=== PATIENT | male | born 2005 | race Caucasian/White ===

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

== ENCOUNTER 2025-01-29 20:08 | Emergency (ER) | payer OTHER, SELFPAY ==
--- OUTSIDE RECORDS SUMMARY | 2025-01-29 20:10 | XMS_ITS | Clinical Summary ---
Author Organization [facility] Address [address] [place] [address] Care Team Providers Care Cruise Consultant Name Role Phone Needs Pcp, Assignment Primary Care Provider [phone] Source Comments You are receiving this document as you are listed as the primary care provider,follow-up provider, or the patient has been referred to you for consultation.This is in compliance with the Medicare and[facility] EHR Incentive Program,which states Providers who transition their patient to another setting of careor provider of care or refers their patient to another provider of care shouldprovide summary care record for each transition of care or referral. Antidot Allergies Active Allergy Reactions Criticality Noted Date Comments Amoxicillin-Pot Clavulanate Hives High 10/21/19 16 Patient also reports throat swelling Medications ibuprofen (MOTRIN) 400 MG tablet Take 1 Tablet (400 mg) by mouth every 6 hours as needed for Pain. Active loratadine (CLARITIN) 10 MG tablet Take 1 Tablet (10 mg) by mouth daily. Active Active Problems No known active problems Immunizations Immunization Administration Dates Next Due 9vHPV (Gardasil 9) 09/21/2021 DTaP 11/24/2010, 7,03/22/2006,2005,2005 Flu Vac (3+ yrs) 03/23/2012,03/27/2011, 0 Flu Vac Preserv Free (3+yrs) 04/20/2013, 03/26/2008,05/19/2007,2006,05/13/2006 Fluzone Qiv Multidose Vial 0 .25 (6-35 Mos) 05/04/2016 HepA Ped/Adol (1-18 yrs) 10/10/2007 HepA, Pediatric (DO NOT USE; for [facility] only) 03/06/2007 Hib/HBV 09/21/2006,01/14/2006,2005 IPV (Polio) 11/24/2010,03/22/2006 Influenza IIV4 (Quadrivalent ) 0.5mL (51205) 04/21/2022,03/25/2020,04/07/2019,2017,05/16/2017 MCV4 Menveo 2m.+ (two vial) 09/21/2021, 8 MMR 11/24/2010,03/06/2007 Pfizer Monovalent 12+ Purple Top 03/17/2021,02/05 Pneumococcal 7, PED 09/21/2006,03/22/2006 Pneumococcal, Unspecified Formulation 01/14/2006 ,2005 Polio, Unspecified Formulation 01/14/2006,2005 Tdap 01/23/2018 Varicella 11/24/2010,09/21/2006 Social History Tobacco Use Types Packs/Day Years Used Date Smoking Tobacco: Never Passive Smoke Exposure: Never Tobacco Cessation:Counseling Given: Not Answered Alcohol Use Standard Drinks/Week Comments Never 0 (1 standard drink = 0.6 oz pur e alcohol) Sex and Gender Information Value Date Recorded Sex Assigned at Not on file Legal Sex Male 2:47 PM CDT Gender Identity Not on file Sexual Orientation Not on file Last Filed Vital Signs Vital Sign Reading Time Taken Comments Blood Pressure 111/72 02/16/2024 11:23 AM CDT Pulse 98 02/16/2024 11:23 AM CDT Temperature 36.9 C (98.4 F) 02/14/2024 2:58 PM CDT Respiratory Rate 18 02/14/2024 2:58 PM CDT Oxygen Saturation 99% 02/14/2024 2:58 PM CDT Inhaled Oxygen Concentration - - Weight 75.8 kg (167 lb) 02/16/2024 11:23 AM CDT Height 185.8 cm (6' 1.13) 02/16/2024 11:23 AM C DT Body Mass Index 21.95 02/16/2024 11:23 AM CDT Body Mass Index Percentile 47.57% 02/16/2024 11: 23 AM CDT Growth Chart: [facility] (Boys, 2-2 0 Years) Plan of Treatment Health Maintenance Due Date Last Done Comments Hep C Screening (Preventive Services) 2005 MenB Immunization Discussion 2005 HIV Screening (Preventive Services) 2021 HPV Vaccine (2 - Male 3-dose series) 10/19/2021 09/21/2021 Adult Preventive Visit 09/19/2023 COVID-19 Vaccine (3 - season) 2024 03/17/2021, 02/25/2021 Influenza Vaccine (#1) 2025 , 03/25/2020, 04/07/2019, Additional history exists DTaP/Tdap/Td Vaccine (7 - Tdap) 01/24/2028 01/23/2018, 11/24/2010, 03/06/2007, Additional history exists Zoster/Shingles Vaccine (1 of 2) 09/19/2055 HepB Vaccine Completed 09/21/2006, 01/04, 2005 Hib Vaccine Completed 09/21/2006, 01/04, 2005 Pneumococcal Vaccine Aged Out 09/21/2006, 03/22/2006, 01/14/2006, Additional history exists No longer eligible based on patient's age to complete this topic HepA Vaccine Completed 10/10/2007, 03/06/2007 Varicella Vaccine Completed 11/24/2010, 09/21/2006 MCV4 Vaccine Completed 09/21/2021, 01/23/2018 Insurance MEDICA CHOICE Care Teams Cruise Consultant Relationship Specialty Start Date End Date Needs Pcp, [place] [address] PCP - General 02/14/24
--- OUTSIDE RECORDS SUMMARY | 2025-01-29 20:10 | XMS_ITS | Clinical Summary ---
Author Organization [place] Address [facility] [place] [address] Care Team Providers Care Acute Specialist Name Role Phone Karen Toussaint MD Primary Care Provider + [phone] Roslyn Aiken RN Unavailable Unavailable Ariana Antony MD Unavailable [phone] Nat Goldstein MD Unavailable [phone] Allergies Active Allergy Reactions Criticality Noted Date Comments Amoxicillin-Pot Clavulanate 10/21/19 16 Medications loratadine (CLARITIN) 10 MG tablet Take 10 mg by mouth daily Active diazepam (DIAZEPAM INTENSOL) 5 MG/ML (HIGH CONC) solutionIndicatio ns:Partial epilepsy with impairment of consciousness (H) Place 2 mLs (10 mg) inside cheek once as needed for seizures (PRN seizures > 3 minutes or 3+ seizures in one hour) 30 mL 01/02/20 20 Active ibuprofen (ADVIL/MOTRIN) 600 MG tablet Take 1 tablet (600 mg) by mouth every 6 hours as needed for moderate pain 20 tablet 11/08/19 21 Active methylPREDNISolon e (MEDROL DOSEPAK) 4 MG tablet therapy pack TAKE DIRECTED PER PACKAGE INSTRUCTIONS 02/20/20 22 Active chlorhexidine (PERIDEX) 0.12 % solution SWISH AND SPIT OUT 15 ML BY MOUTH TWO TIMES A DAY FOR 7 DAYS 02/20/20 22 Active Immunizations Immunization Administration Dates Next Due Comvax (HIB/HepB) 09/21/2006,01/14/2006,12/01/19 06 DTAP (<7y) 11/24/2010, 7,03/22/2006,01/14,2005 HepA-Peds, Unspecified 03/06/2007 Hepatitis A (Vaqta/Havrix)(P eds 12m-18y) 10/10/2007 Influenza (IIV3) PF 03/23/2012,03/27/2011,2009 Influenza (prior to 2023) 04/20/2013,,05/19/2007,04/25,05/13/2006 Influenza Vaccine >6 months,quad, PF 04/07/2019, 04/22/2018,05/16/2017 Influenza Vaccine, 6+MO IM (QUADRIVALENT W/PRESERVATIVES) 05/04/2016 MMR (MMRII) 11/24/2010,03/06/2007 Meningococcal ACWY (Menveo ) 01/23/2018 Pneumococcal (PCV 7) 09/21/2006,03/22/2006 Pneumococcal, Unspecified 01/14/2006,2005 Polio, Unspecified 01/14/2006,2005 Poliovirus, inactivated (IPV) 11/24/2010, 006 TDAP Vaccine (Adacel) 01/23/2018 Varicella (Varivax) 11/24/2010,09/21/2006 Family History Medical History Relation Comments Seizure Disorder No family hx of Social History Tobacco Use Types Packs/Day Years Used Date Smoking Tobacco: Passive Smo ke Exposure - Never Smoker Smokeless Tobacco: Never Comments:Parents smoke outsi she Alcohol Use Standard Drinks/Week Comments No 0 (1 standard drink = 0.6 oz pur e alcohol) PHQ-2 Answer Date Recorded PHQ-2 Score 0 02/24/2022 Adolescent Education Answer Date Record ed Getting School Help Needed Not on file 03/14 Sex and Gender Information Value Date Recorded Sex Assigned at Not on file 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 Gender Identity Not on file Sexual Orientation Not on file Last Filed Vital Signs Vital Sign Reading Time Taken Comments Blood Pressure 126/78 05/19/2023 2:50 PM MOTORBOAT OPERATOR Pulse 78 05/19/2023 2:50 PM MOTORBOAT OPERATOR Temperature 36.9 C (98.5 F) 05/19/2023 2:50 PM MOTORBOAT OPERATOR Respiratory Rate 16 05/19/2023 2:50 PM MOTORBOAT OPERATOR Oxygen Saturation 100% 05/19/2023 2:50 PM MOTORBOAT OPERATOR Inhaled Oxygen Concentration - - Weight 84.5 kg (186 lb 4.6 oz) 05/19/2023 2:50 P M MOTORBOAT OPERATOR Height 184 cm (6' 0.44) 02/24/2022 2:10 PM CDT Head Circumference 55.2 cm 12/13/2018 1:25 PM CDT Body Mass Index 24.96 02/24/2022 2:10 PM CDT Body Mass Index Percentile 82.63% 05/19/2023 2:5 0 PM MOTORBOAT OPERATOR Growth Chart: CDC (Boys, 2-2 0 Years) Plan of Treatment Health Maintenance Due Date Last Done Comments ADVANCE CARE PLANNING 2005 ANNUAL REVIEW OF HM ORDERS 2005 HIV SCREENING 2020 MENINGITIS B VACCINE (1 of 2 - Standard) 2021 HPV VACCINE (2 - Male 3-dose series) 10/19/2021 09/21/2021 HEPATITIS C SCREENING 09/19/2023 YEARLY PREVENTIVE VISIT 11/18/2023 11/17/2022, 09/21 COVID-19 VACCINE (3 - 2023-2 5 season) 2024 03/17/2021, 02/25/2021 PHQ-2 (once per calendar year) 2024 0 02/24/2022, 06/11/2019, 12/13/2018, Additional history exists INFLUENZA VACCINE (#1) 2025 , 03/25/2020, 04/07/2019, Additional history exists DTAP/TDAP/TD VACCINE (7 - Td or Tdap) 01/24/2028 01/23/2018, 11/24/2010, 03/06/2007, Additional history exists ZOSTER VACCINE (1 of 2) 09/19/2055 HEPATITIS B VACCINE Completed 09/21/2006, 01/14/2006, 2005 HIB VACCINE Completed 09/21/2006, 01/04, 2005 PNEUMOCOCCAL VACCINE: PEDIAT RICS (0 to 5 YEARS) AND AT-RISK PATIENTS (6 to 49 YEARS) Completed 09/21/2006, 03/22/2006, 01/14/2006, Additional history exists IPV VACCINE Completed 11/24/2010, 03/06, 01/14/2006, Additional history exists VARICELLA VACCINE Completed 11/24/2010, 09/21/2006 MENINGITIS VACCINE Completed 09/21/2021, 01/23/2018 Insurance [employer] CHOICE [employer] CHOICE MEDICA CHOICE MEDICA CHOICE Care Teams Acute Specialist Relationship Specialty [place] [address] [place] [address] PCP - General Family Practice 11/06/15 Roslyn Aiken, THOM PWB - P[facility] Specialty Clinic RN Equipment Lead, [phone] Nurse Coordinator Pediatric Neurology 06/16/16 Ariana Antony MD [address] [facility] [address] [place], [place] [id number] Pediatric Neurology 08/03/17 Nat Goldstein MD [address] [address] Neurology with Spec Qualification in Child Neurology 01/25/22
[2025-01-29 20:34] VITALS: BP 141/94; PULSE 96; RESP 18; TEMP 36.8; O2SAT 99; BMI 25.1
--- OUTSIDE RECORDS SUMMARY | 2025-01-30 00:58 | XMS_ITS | Clinical Summary ---
Author Organization [facility] Address [address] [place] [address] Care Team Providers Care Curb Setter Name Role Phone Needs Pcp, Assignment Primary Care Provider Source Comments You are receiving this document as you are listed as the primary care provider,follow-up provider, or the patient has been referred to you for consultation.This is in compliance with the Medicare and[facility] EHR Incentive Program,which states Providers who transition their patient to another setting of careor provider of care or refers their patient to another provider of care shouldprovide summary care record for each transition of care or referral. Weft Allergies Active Allergy Reactions Criticality Noted Date [...] (Polio) 11/24/2010,03/22/2006 Influenza IIV4 (Quadrivalent ) 0.5mL (34031) 04/21/2022,03/25/2020,04/07/2019,2017,05/16/2017 MCV4 Menveo 2m.+ (two vial) 09/21/2021, [...] 02/16/2024 11: 23 AM CDT Growth Chart: [facility] (Boys, 2-2 0 Years) Plan of Treatment [...] 09/21/2021, 01/23/2018 Insurance MEDICA CHOICE Care Teams Curb Setter Relationship Specialty Start Date End Date Needs Pcp, [place] [address] PCP - General 02/14/24
--- OUTSIDE RECORDS SUMMARY | 2025-01-30 00:58 | XMS_ITS | Clinical Summary ---
Author Organization [place] Address [facility] 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 Gender Identity Not on file Sexual Orientation Not on file Last Filed Vital Signs Vital Sign Reading Time Taken Comments Blood Pressure 126/78 05/19/2023 2:50 PM SCOURING MACHINE TENDER Pulse 78 05/19/2023 2:50 PM SCOURING MACHINE TENDER Temperature 36.9 C (98.5 F) 05/19/2023 2:50 PM SCOURING MACHINE TENDER Respiratory Rate 16 05/19/2023 2:50 PM SCOURING MACHINE TENDER Oxygen Saturation 100% 05/19/2023 2:50 PM SCOURING MACHINE TENDER Inhaled Oxygen Concentration - - Weight 84.5 kg (186 lb 4.6 oz) 05/19/2023 2:50 P M SCOURING MACHINE TENDER Height 184 cm (6' 0.44) 02/24/2022 2:10 PM CDT Head Circumference 55.2 cm 12/13/2018 1:25 PM CDT Body Mass Index 24.96 02/24/2022 2:10 PM CDT Body Mass Index Percentile 82.63% 05/19/2023 2:5 0 PM SCOURING MACHINE TENDER Growth Chart: CDC (Boys, 2-2 0 Years) [...] 09/21/2006 MENINGITIS VACCINE Completed 09/21/2021, 01/23/2018 Insurance [employer] CHOICE [employer] CHOICE MEDICA CHOICE MEDICA CHOICE Care Teams Hedge Fund Trader Relationship Specialty Start [place] [address] [place] [address] PCP - General Family Practice 11/06/15 Roslyn Aiken, THOM PWB - P[facility] Specialty Clinic RN Chief Pharmacist, [phone] Nurse Coordinator Pediatric Neurology 06/16/16 Ariana Antony MD [address] [facility] [address] [place], [place] [id number] Pediatric Neurology 08/03/17 Nat Goldstein MD [address] [address] Neurology with Spec Qualification in Child Neurology 01/25/22
== END 2025-01-30 01:04 | disposition left against medical advice (07) ==
LOC: ED 01-30 00:56
PROVIDERS: Emergency Provider Family Medicine; PCP Nurse Practitioner Family
DX: Z53.21 Procedure and treatment not carried out due to patient leaving prior to being seen by health care provider (principal)
CPT/HCPCS: 99281